=== PATIENT | female | born 1940 | race Caucasian/White ===

== ENCOUNTER 2021-09-19 17:53 | Emergency (ER) | payer MEDICARE ==
[~2021-09-19] VITALS: Ht 162.6 cm; Wt 73.2 kg
[~2021-09-19 17:53] MED LIST: ASPI-611 PO; CARV6.253 PO; CHOL2000 PO; CLOP75TA33 PO; DEXL60CA3 PO; ESTR0.5T; FLUT1AER INH; GUAI600T45 PO; IPRA3AMP9 NEB; LOSA1TAB41 PO; MIRT-87 PO; MONT10TA21 PO; NITR0.4T51 SL; PRAV40TA65 PO; PRED10TA PO; TRAZ-251 PO; UMEC62.5 INH; VENL75TA90 PO
[2021-09-19 18:04] VITALS: BP 114/52
[2021-09-20] MEDS ORDERED: CEPH-585 PO ×2 (13:48)
[2021-09-20] MEDS ORDERED: CEPH250T PO (14:47)
== END 2021-09-20 03:39 | disposition left against medical advice (07) ==
LOC: ER 17:55
DX: M79.642 Pain in left hand (principal); Z53.21 Procedure and treatment not carried out due to patient leaving prior to being seen by health care provider

== ENCOUNTER 2021-09-20 12:51 | Emergency (ER) | payer MEDICARE ==
[~2021-09-20] VITALS: Ht 162.6 cm; Wt 80.0 kg
[2021-09-20 13:25] VITALS: BP 130/59
[2021-09-20] MEDS ORDERED: CEPH-585 PO ×2 (13:48)
[2021-09-20] MEDS ORDERED: CEPH250T PO (14:47)
--- NOTE | 2021-09-20 14:59 | NUR ---
PT SEEN, TREATED AND DC FROM TRIAGE
== END 2021-09-20 15:00 | disposition home or self-care (01) ==
LOC: ER 12:51
DX: L03.114 Cellulitis of left upper limb (principal); I25.10 Atherosclerotic heart disease of native coronary artery without angina pectoris; I10 Essential (primary) hypertension; I25.2 Old myocardial infarction; J44.9 Chronic obstructive pulmonary disease, unspecified; K21.9 Gastro-esophageal reflux disease without esophagitis; F41.9 Anxiety disorder, unspecified; F32.9 Major depressive disorder, single episode, unspecified; Z98.890 Other specified postprocedural states; Z95.1 Presence of aortocoronary bypass graft; Z79.82 Long term (current) use of aspirin; Z79.2 Long term (current) use of antibiotics; Z79.899 Other long term (current) drug therapy
CPT/HCPCS: 99283